=== PATIENT | female | born 1940 ===

== ENCOUNTER 2019-06-16 06:24 | Day surgery (SDC) | payer OTHER ==
[~2019-06-16 06:24] MED LIST: CALCI-CHEW500 MG; DECADRON0.5 MG; LENALIDOMIDE 5 MG; TOPROL XL50 MG; VITAMINA B-12; [UNRECOGNIZED DRUG - OTHER]
[2019-06-16] MEDS ORDERED: PERCOCET 5-3251 EACH PO (09:09)
== END 2019-06-16 12:00 | disposition home or self-care (01) ==
LOC: CIR.AMB 06:24
DX: C90.00 Multiple myeloma not having achieved remission (principal)
CPT/HCPCS: 36561; C1751

== ENCOUNTER 2019-11-09 18:07 | Inpatient (IN) | payer OTHER ==
[~2019-11-09] VITALS: Ht 162.6 cm; Wt 53.5 kg
[~2019-11-09 18:07] MED LIST changes: +PERCOCET 5-3251 EACH PO
[2019-11-09] MEDS ORDERED: ADALAT CC60 MG (18:17)
[2019-11-09] MEDS ORDERED: PROTONIX40 M1 (18:17)
[2019-11-09] MEDS ORDERED: TOPROL XL25 M1 (18:17)
[2019-11-09] MEDS ORDERED: VALSARTAN80 MG (18:17)
[2019-11-09] MEDS ORDERED: PLAVIX75 MG (18:17)
[2019-11-09] MEDS ORDERED: PEPCID AC20 MG (18:18)
--- NOTE | 2019-11-09 18:18 | NUR ---
SE RECIBE PACIENTE ALERTA Y ORIENTADA REFIERE VENIR A FÉLIX DE EMERGENCIA POR REFERIDO MEDICO DE HEMATOLOGO DR. MADDI GILLIS POR PROBLEMAS CON MEDPORT. HIJA DE PACIENTE INDICA HAMATOLOGO HABLO CON DR. CLEMENTE SCOTT Y DR. AGUIRRE.
--- NOTE | 2019-11-09 19:10 | NUR ---
PTE EVALUADA POR DR WHITEHEAD.
[2019-11-16] MEDS ORDERED: DOXYCYCLINE HY100 M2 PO (11:38)
[2019-11-16] MEDS ORDERED: INTESTINEX680 M1 PO (11:38)
== END 2019-11-16 12:38 | disposition home or self-care (01) | DRG 315 ==
LOC: ER 18:07 → MEDJ 19:31 → SEC-K 19:31 → ICU-2 19:51 → MEDJ 19:56
PROVIDERS: Surgery; ADMIT Internal Medicine
PROC: 8E0ZXY6 Isolation (ICD-10-PCS; 2019-11-10)
PROC: 0JPT0WZ Removal of Totally Implantable Vascular Access Device from Trunk Subcutaneous Tissue and Fascia, Open Approach (ICD-10-PCS; principal; 2019-11-14 22:15)
DX: T80.218A Other infection due to central venous catheter, initial encounter (principal); C90.00 Multiple myeloma not having achieved remission; N17.9 Acute kidney failure, unspecified; I12.9 Hypertensive chronic kidney disease with stage 1 through stage 4 chronic kidney disease, or unspecified chronic kidney disease; N18.3 Chronic kidney disease, stage 3 (moderate); Z79.01 Long term (current) use of anticoagulants; Y84.8 Other medical procedures as the cause of abnormal reaction of the patient, or of later complication, without mention of misadventure at the time of the procedure